=== PATIENT | male | born 1990 | race Caucasian/White ===

== ENCOUNTER 2018-03-14 11:29 | Emergency (ER) | payer SELFPAY, BC, OTHER | END 2018-03-14 12:05 | disposition left against medical advice (07) | LOC: M ED 11:29 | DX: S60.562A Insect bite (nonvenomous) of left hand, initial encounter (principal); W57.XXXA Bitten or stung by nonvenomous insect and other nonvenomous arthropods, initial encounter; Y92.89 Other specified places as the place of occurrence of the external cause; Z91.030 Bee allergy status; F17.210 Nicotine dependence, cigarettes, uncomplicated | CPT/HCPCS: 99284 ==